=== PATIENT | male | born 1995 | race Caucasian/White ===

== ENCOUNTER 2017-07-28 09:47 | Emergency (ER) | payer OTHER ==
--- NOTE | 2017-07-28 10:14 | EDM.PDOC ---
ED HPI GENERAL MEDICAL PROBLEM - General Chief Complaint: ENT Problem Stated Complaint: ORAL PROBLEMS Time Seen by Provider: 07/28/17 10:05 Source of Information: Reports: Patient History Limitations: Reports: No Limitations - History of Present Illness INITIAL COMMENTS - FREE TEXT/NARRATIVE: HISTORY AND PHYSICAL: History of present illness: Patient is a 22-year-old male present to the emergency room with dental pain. States he recently came from [place] and had "a lot of work done on his teeth" a couple months ago. Has been up in [place] for work since that time. Has been having upper gumline pain to both the left and the right for the past 2 days. Reports he has been using Tylenol [id number] for pain management, without much relief. Denies any ear pain or throat pain. Denies any fever, chills, nausea, vomiting, or abdominal pain. Review of systems: As per history of present illness and below otherwise all systems reviewed and negative. Past medical history: As per history of present illness and as reviewed below otherwise noncontributory. Surgical history: As per history of present illness and as reviewed below otherwise noncontributory. Social history: No reported history of drug or alcohol abuse. Family history: As per history of present illness and as reviewed below otherwise noncontributory. Physical exam: General: Nontoxic appearing 22-year-old male. Able to speak in full sentences without shortness of breath. Answers questions appropriately. HEENT: Atraumatic, normocephalic, pupils reactive, negative for conjunctival pallor or scleral icterus, mucous membranes moist, throat clear, neck supple, nontender, trachea midline. Multiple dental caries noted, erythema and swelling noted to the upper right gum line along tooth 1 through 5Lungs: Clear to auscultation, breath sounds equal bilaterally, chest nontender. Heart: S1S2, regular, negative for clicks, rubs, or JVD. Abdomen: Soft, nondistended, nontender. Negative for masses or hepatosplenomegaly. Negative for costovertebral tenderness. Pelvis: Stable nontender. Genitourinary: Deferred. Rectal: Deferred. Extremities: Atraumatic, negative for cords or calf pain. Neurovascular unremarkable. Neuro: Awake, alert, oriented. Cranial nerves II through XII unremarkable. Cerebellum unremarkable. Motor and sensory unremarkable throughout. Exam nonfocal. Diagnostics: Therapeutics: Dental balls Impression: Dental abscess, dental caries Plan: 1. Please take antibiotics and diclofenac as prescribed. Amoxicillin 875mg BID x 10 days. Cataflam 50mg TID PRN (Disp #20). May take [id number] Tylenol and/or ibuprofen for pain relief. 2. These establish care with a dentist. Follow-up with dentist in the next 1-2 days. 3. Return to ED as needed as discussed. Definitive disposition and diagnosis as appropriate pending reevaluation and review of above. Onset Date: 07/27/17 Duration: Day(s): (2) Quality: Reports: Pressure Severity: Moderate - Related Data Allergies Allergy/AdvReac Type Severity Reaction Status Date / Time No Known Allergies Allergy Verified 07/28/17 10:01 Home Meds: Home Meds . [No Known Home Meds] 02/22/15 [History] Past Medical History - Past Health History Medical/Surgical History: Denies Medical/Surgical History Social & Family History - Tobacco Use Smoking Status *Q: Former Smoker Years of Tobacco use: 2 Second Hand Smoke Exposure: No - Alcohol Use Days Per Week of Alcohol Use: 0 - Recreational Drug Use Recreational Drug Use: No ED ROS GENERAL - Review of Systems Review Of Systems: ROS reveals no pertinent complaints other than HPI. ED EXAM, GENERAL - Physical Exam Exam: See Below (See dictation) Course - Vital Signs Last Recorded V/S: Last Vital Signs Temp 36.0 C 07/28/17 09:57 Pulse 83 07/28/17 09:57 Resp 18 07/28/17 09:57 BP 140/87 07/28/17 09:57 Pulse Ox 96 07/28/17 09:57 - Orders/Labs/Meds Meds: Medications Discontinued Medications Generic Name Dose Route Start Last Admin Trade Name Freq PRN Reason Stop Dose Admin Benzocaine 2 each 07/28/17 10:17 Hurricaine One 20% MUCMEM 07/28/17 10:18 ONETIME ONE Lidocaine HCl 15 ml 07/28/17 10:17 Xylocaine 2% Viscous PO 07/28/17 10:18 ONETIME ONE Departure - Departure Time of Disposition: 10:15 Disposition: Home, Self-Care 01 Clinical Impression: Dental caries, Dental abscess - Discharge Information Referrals: PCP,None [Primary Care Provider] - Forms: ED Department Discharge Additional Instructions: The following information is given to patients seen in the emergency department who are being discharged to home. This information is to outline your options for follow-up care. We provide all patients seen in our emergency department with a follow-up referral. The need for follow-up, as well as the timing and circumstances, are variable depending upon the specifics of your emergency department visit. If you don't have a primary care physician on staff, we will provide you with a referral. We always advise you to contact your personal physician following an emergency department visit to inform them of the circumstance of the visit and for follow-up with them and/or the need for any referrals to a consulting specialist. The emergency department will also refer you to a specialist when appropriate. This referral assures that you have the opportunity for followup care with a specialist. All of these measure are taken in an effort to provide you with optimal care, which includes your followup. Under all circumstances we always encourage you to contact your private physician who remains a resource for coordinating your care. When calling for followup care, please make the office aware that this follow-up is from your recent emergency room visit. If for any reason you are refused follow-up, please contact the [facility] emergency department at and ask to speak to the emergency department charge nurse. [facility] Primary care- Internal Medicine and Family [address] [address] 1. Please take antibiotics and diclofenac as prescribed. May take over-the- counter Tylenol and/or ibuprofen for pain relief. 2. These establish care with a dentist. Follow-up with dentist in the next 1-2 days. 3. Return to ED as needed as discussed.
[2017-07-28] MEDS ORDERED: Lidocaine 2% Viscous Solution 15 ML Cup PO ONE (10:17)
[2017-07-28] MEDS ORDERED: Benzocaine 20% Topical Spray UD MUCMEM ONE (10:17)
[2017-07-28 10:36] VITALS: BP 134/89
== END 2017-07-28 10:34 | disposition home or self-care (01) ==
LOC: MW.ED 09:47
DX: K04.7 Periapical abscess without sinus (principal); K02.9 Dental caries, unspecified; Z87.891 Personal history of nicotine dependence
CPT/HCPCS: 99282; A9270